=== PATIENT | female | born 1990 | race Caucasian/White ===

== ENCOUNTER 2017-04-02 23:32 | Emergency (ER) | payer SELFPAY ==
[2017-04-02 23:33] VITALS: BP 128/93; PULSE 91; RESP 16; TEMP 98.5; O2SAT 97
[2017-04-03] MEDS ORDERED: diphenhydrAMINE HCL 50 MG/ML VIAL IV PUSH ONE
[2017-04-03] MEDS ORDERED: PROCHLORPERAZINE INJ 10 MG/2 ML VIAL IV PUSH ONE
[2017-04-03] MEDS ORDERED: SODIUM CHLOR 0.9% 1000 ML INJ 1,000 ML IV ONE
[2017-04-03] MEDS ORDERED: ONDANSETRON ODT 4 MG TAB PO ONE (00:15)
[2017-04-03] MEDS ORDERED: ZOFR4TAB PO (00:30)
--- NOTE | 2017-04-03 00:31 | PD ---
HPI . Vomiting Chief Complaint: Abdominal Pain Time Seen by Provider: 23:54 Travel History International Travel<30 days: No Contact w/Intl Traveler<30days: No Traveled to known affect area: No History of Present Illness HPI This patient presents with a chief complaint of vomiting and abdominal pain. Onset was after she ate some pizza for lunch today. She denies diarrhea. She denies fever. She denies any urinary tract symptoms. Modifying factors. She states that she has vomited multiple times. No sick contacts. PFSH Past Medical History ?: Not LMP: 03/26/17 Social History Tobacco Use: No Allergies-Medications (Allergen,Severity, Reaction): Coded Allergies: No Known Allergies (Verified Allergy, Unknown, 04/02/17) Review of Systems Except as stated in HPI: all other systems reviewed are Neg General / Constitutional: No: Fever, Chills Gastrointestinal: Positive: Nausea, Vomiting, Abdominal Pain, No: Diarrhea Genitourinary: No: Urgency, Frequency, Dysuria, Dyspareunia, Discharge Physical Exam Narrative GENERAL: Healthy-appearing young woman who is in no acute distress. SKIN: warm/dry. Good color. Good turgor. HEAD: Normocephalic. Atraumatic. EYES: Pupils equal and round. No scleral icterus. No injection or drainage. ENT: No nasal bleeding or discharge. Mucous membranes pink and moist. NECK: Trachea midline. Full range of motion without pain.. CARDIOVASCULAR: Regular rate and rhythm. Heart sounds are normal. RESPIRATORY: No accessory muscle use. Clear to auscultation. Breath sounds equal bilaterally. GASTROINTESTINAL: Abdomen soft. Nontender. Bowel sounds present. Nondistended. MUSCULOSKELETAL: No obvious deformities. NEUROLOGICAL: Awake and alert. No obvious cranial nerve deficits. Motor grossly within normal limits. Normal speech. PSYCHIATRIC: Appropriate mood and affect; insight and judgment normal. Data Data Last Documented VS Vital Signs Date Time Temp Pulse Resp B/P (MAP) Pulse Ox O2 Delivery O2 Flow Rate FiO2 04/02/17 23:33 98.5 91 16 128/93 (105) 97 Room Air Orders Orders Sodium Chlor 0.9% 1000 Ml Inj (Ns 1000 M (04/03/17 00:00) Prochlorperazine Inj (Compazine Inj) (04/03/17 00:00) Diphenhydramine Inj (Benadryl Inj) (04/03/17 00:00) Ondansetron Odt (Zofran Odt) (04/03/17 00:15) MDM Medical Decision Making Medical Screen Exam Complete: Yes Emergency Medical Condition: Yes Differential Diagnosis Differential diagnosis includes but is not limited to viral gastritis, food poisoning, pancreatitis, pneumonia, hepatitis, acute coronary syndrome, Narrative Course This patient presents with the acute onset of nausea, vomiting and abdominal pain. She is well-appearing. I ordered IV fluids and IV Compazine and Benadryl for her. However, she declines this stating that she would just like to have a Zofran ODT. Diagnosis Primary Impression: Vomiting Qualified Codes: R11.2 - Nausea with vomiting, unspecified Patient Instructions: Acute Nausea and Vomiting (DC), General Instructions Med/Other Pt SpecificInfo: Prescription(s) given Scripts Ondansetron (Zofran) 4 Mg Tab 4 MG PO Q6HR Y for NAUSEA OR VOMITING, #10 TAB 0 Refills Prov: Marleen Beavers MD 04/03/17 Disposition: 01 DISCHARGE HOME Condition: Stable Marleen Beavers MD Apr 03, 2017 00:31
== END 2017-04-03 00:51 | disposition home or self-care (01) ==
LOC: NEPE 23:32
DX: R11.2 Nausea with vomiting, unspecified (principal); R10.9 Unspecified abdominal pain
CPT/HCPCS: 99283

== ENCOUNTER 2017-09-05 18:51 | Emergency (ER) | payer OTHER ==
[~2017-09-05 18:51] MED LIST: ZOFR4TAB PO
== END 2017-09-05 21:55 | disposition left against medical advice (07) ==
LOC: NED 18:51
DX: Z04.1 Encounter for examination and observation following transport accident (principal)
CPT/HCPCS: 99281

== ENCOUNTER 2017-09-06 00:40 | Emergency (ER) | payer OTHER ==
[~2017-09-06] VITALS: Ht 167.6 cm; Wt 46.5 kg
[2017-09-06 01:39] VITALS: BP 120/71; PULSE 71; RESP 16; TEMP 98.1; O2SAT 100
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
== END 2017-09-06 04:18 | disposition home or self-care (01) ==
LOC: NEPD 00:40
DX: S16.1XXA Strain of muscle, fascia and tendon at neck level, initial encounter (principal); V46.4XXA Person boarding or alighting a car injured in collision with other nonmotor vehicle, initial encounter; Z72.0 Tobacco use
CPT/HCPCS: 72125; 84703

== ENCOUNTER 2017-12-23 17:53 | Emergency (ER) | payer SELFPAY ==
[~2017-12-23] VITALS: Ht 167.6 cm; Wt 45.0 kg
[2017-12-23 17:56] VITALS: BP 108/70; PULSE 80; RESP 16; TEMP 98; O2SAT 100
--- NOTE | 2017-12-23 19:10 | PD ---
HPI Chief Complaint: Pain: Acute or Chronic Time Seen by Provider: 18:42 Travel History International Travel<30 days: No Contact w/Intl Traveler<30days: No Traveled to known affect area: No History of Present Illness HPI 27-year-old female presents to the emergency department with complaint of bilateral knees that started hurting yesterday and bilateral ankle pain and swelling that started today. Denies injury. Says she has been sitting all day at work and her HR department told her she should come to the ER to get her ankle swelling checked out. Says they are not really painful, but it is more of a pressure behind her knees and to both of her ankle; and her right ankle is worse than her left. She is concerned about her kidneys and maybe thinks she has a urinary tract infection. She denies dysuria, hematuria. Reports urinary frequency and hesitancy. Says she still feels like she has to urinate after she is done urinating. She also states that for the past 3 weeks she has not been eating because she has been feeling depressed and she says she has lost 10 pounds, but states she has regained 6 pounds because she has been eating again. She has not taken any medications or try any treatments to alleviate her symptoms. Symptoms seem to be worse when she is standing and walking a prolonged amount of time. No known relieving factors. Symptoms are mild in severity. No primary care provider. No known allergies. History of anemia. Has no other medical complaints. No other modifying factors or associated signs and symptoms. PFSH Past Medical History Anemia: Yes Diminished Hearing: No Tetanus Vaccination: < 5 Years Influenza Vaccination: No ?: Unknown LMP: 12/23/17 Para: 0 Miscarriage: 0 Past Surgical History Surgical History: No Previous Surgery Social History Alcohol Use: No Tobacco Use: Yes (1/2PPD) Substance Use: Yes (MARIJUANA) Allergies-Medications (Allergen,Severity, Reaction): Coded Allergies: No Known Allergies (Verified , 12/23/17) Reported Meds & Prescriptions Reported Meds & Active Scripts Active Keflex (Cephalexin) 500 Mg Cap 500 Mg PO Q12H 7 Days Review of Systems Except as stated in HPI: all other systems reviewed are Neg Physical Exam Narrative GENERAL: Thin, female patient, in no acute distress SKIN: Warm and dry. HEAD: Atraumatic. Normocephalic. EYES: Pupils equal and round. No scleral icterus. No injection or drainage. ENT: Mucosa pink and moist. Airway patent. NECK: Trachea midline. CARDIOVASCULAR: Regular rate. RESPIRATORY: No accessory muscle use. GASTROINTESTINAL: Flat. MUSCULOSKELETAL: Bilateral ankles are mildly edematous; the right is a little bit worse than the left; with nonpitting edema. Bilateral knees with full range of motion and without erythema, edema, ecchymosis. Bilateral lower extremities are supple and non-tense with 2+ pedal pulses and sensory intact and without erythema or edema, except at the ankles. No obvious deformities. No clubbing. No cyanosis. No edema. NEUROLOGICAL: Awake and alert. Oriented 3. No obvious cranial nerve deficits. Motor grossly within normal limits. Normal speech. PSYCHIATRIC: Appropriate mood and affect; insight and judgment normal. Data Data Last Documented VS Vital Signs Date Time Temp Pulse Resp B/P (MAP) Pulse Ox O2 Delivery O2 Flow Rate FiO2 12/23/17 17:56 98.0 80 16 108/70 (83) 100 Orders Orders Urinalysis - C+S If Indicated (12/23/17 19:10) Ed Urine Pregnancytest Poc (12/23/17 19:10) Comprehensive Metabolic Panel (12/23/17 19:48) Urine Culture (12/23/17 19:21) Labs Laboratory Tests Test 12/23/17 19:21 Urine Color YELLOW Urine Turbidity HAZY Urine pH 7.0 Urine Specific [place] 1.009 Urine Protein NEG mg/dL Urine Glucose (UA) NEG mg/dL Urine Ketones NEG mg/dL Urine Occult Blood NEG Urine Nitrite POS Urine Bilirubin NEG Urine Urobilinogen LESS THAN 2 mg/dL Urine Leukocyte Esterase LARGE Urine WBC 5 /hpf Urine Squamous Epithelial Cells 3 /hpf Urine Bacteria OCC /hpf Microscopic Urinalysis Comment CULTURE INDICATED MDM Medical Decision Making Medical Screen Exam Complete: Yes Emergency Medical Condition: Yes Medical Record Reviewed: Yes Differential Diagnosis arthritis, bursitis, UTI, cystitis, nephrotic syndrome, dependent edema Narrative Course 27-year-old female with bilateral ankle edema that she noticed today; the right is a little bit worse than the left. No injuries. Reports urinary frequency and hesitancy. Urinalysis and UPT ordered. Discussed the patient with Dr. Westbrook and plan of care discussed. CMP ordered. Patient refusing lab work. Patient says that she needs to leave. Urinalysis pending. AMA: The risks of leaving against medical advice without further evaluation treatment were discussed with the patient. These risks include cardiac dysfunction, cardiac dysrhythmia, possible heart attack, possible stroke or . The patient indicated understanding of these risks and appeared to have the capacity to make this decision. Patient's urinalysis did resolve prior to her leaving and showed signs of infection and reflex to culture. I did provide the patient with a prescription for Keflex prior to her leaving. Diagnosis Primary Impression: Left against medical advice Med/Other Pt SpecificInfo: Prescription(s) given Scripts Cephalexin (Keflex) 500 Mg Cap 500 MG PO Q12H for Infection for 7 Days, #14 CAP 0 Refills Prov: Riya Dumont 12/23/17 Disposition: 07 AGAINST MEDICAL ADVICE Riya Dumont Dec 23, 2017 19:10
[2017-12-23 20:03] LABS: BACTERIA, URINE OCC /hpf; BILIRUBIN, URINE NEG (NEG); BLOOD, URINE NEG (NEG); GLUCOSE,URINE NEG (NEG); KETONE, URINE NEG (NEG); NITRITE,URINE POS (NEG); SQUAMOUS EPITHELIAL CELL URINE 3 /hpf (0-5); URINE COLOR YELLOW (YELLW/STRAW); URINE LEUKOCYTE ESTERASE LARGE (NEG)
[2017-12-23] MEDS ORDERED: CEPH-460 PO (20:09)
== END 2017-12-23 20:13 | disposition left against medical advice (07) ==
LOC: NEPK 17:53
DX: N39.0 Urinary tract infection, site not specified (principal); B96.20 Unspecified Escherichia coli [E. coli] as the cause of diseases classified elsewhere; M25.562 Pain in left knee; M25.561 Pain in right knee; M25.572 Pain in left ankle and joints of left foot; M25.571 Pain in right ankle and joints of right foot; R35.0 Frequency of micturition; R39.11 Hesitancy of micturition; Z53.20 Procedure and treatment not carried out because of patient's decision for unspecified reasons; D64.9 Anemia, unspecified; F17.210 Nicotine dependence, cigarettes, uncomplicated
CPT/HCPCS: 81001; 84703; 87077; 87086; 87186; 99283